=== PATIENT | male | born 1955 | race Caucasian/White ===

== ENCOUNTER → 2017-05-03 | Outpatient (CLI) | payer OTHER ==
[~2017-05-03] MED LIST: ASPIR 8181 M1 PO; COLACE100 MG PO; DILAUDID4 MG PO; LIPITOR10 MG PO; ONDANSETRON HCL8 MG PO; POLY-VITAMIN1 EACH PO
== END | disposition home or self-care (01) ==
LOC: CDC 13:02
DX: Z01.810 Encounter for preprocedural cardiovascular examination (principal); K40.90 Unilateral inguinal hernia, without obstruction or gangrene, not specified as recurrent
CPT/HCPCS: 93000

== ENCOUNTER 2017-05-07 07:48 | Day surgery (SDC) | payer OTHER ==
[~2017-05-07] VITALS: Ht 167.6 cm; Wt 74.3 kg
[~2017-05-07 07:48] MED LIST changes: -COLACE100 MG PO; -DILAUDID4 MG PO; -ONDANSETRON HCL8 MG PO
[2017-05-07 08:17] VITALS: BP 154/97
[2017-05-07] MEDS ORDERED: ONDANSETRON HCL8 MG PO (12:43)
[2017-05-07] MEDS ORDERED: COLACE100 MG PO (12:43)
[2017-05-07] MEDS ORDERED: DILAUDID4 MG PO (12:43)
[2017-05-07 13:35] VITALS: BP 149/87
[2017-05-07 14:30] VITALS: BP 130/80
[2017-05-07 15:50] VITALS: BP 135/85
[2017-05-07 17:13] VITALS: BP 119/74
== END 2017-05-07 17:35 | disposition home or self-care (01) ==
LOC: SDC
PROC: 0YU64JZ Supplement Left Inguinal Region with Synthetic Substitute, Percutaneous Endoscopic Approach (ICD-10-PCS; principal; 2017-05-07)
DX: K40.90 Unilateral inguinal hernia, without obstruction or gangrene, not specified as recurrent (principal); E78.5 Hyperlipidemia, unspecified; Z87.891 Personal history of nicotine dependence; Z79.82 Long term (current) use of aspirin; Z82.49 Family history of ischemic heart disease and other diseases of the circulatory system
CPT/HCPCS: C1781; J0690; J2250; J2405; J2765; J3010